=== PATIENT | female | born 1995 | race Caucasian/White ===

== ENCOUNTER 2017-01-20 17:15 | Outpatient (CLI) | payer OTHER ==
[~2017-01-20 17:15] MED LIST: BENADRYL25 MG PO; EPIPEN ADU0.3 MG/0.3 IM; MIRALAX17 GM PO; NORCO 5/3251 TABLET PO; ONDANSETRON4 MG/2 ML PO; PREDNISONE20 MG PO; PRENATAL TABLE1 EAC3 PO; ZANTAC150 MG PO; ZOFRAN ODT4 MG PO; [UNRECOGNIZED DRUG - REMARK]
[2017-01-20 17:47] VITALS: BP 108/60
[2017-01-20 19:13] VITALS: BP 115/59
[2017-01-20 20:37] VITALS: BP 116/59
[2017-01-20 21:35] LABS: CANDIDA DNA PROBE NEGATIVE; GARDNERELLA DNA PROBE NEGATIVE; INTERNAL CONTROL VALID? YES
[2017-01-22 13:11] LABS: CHLAMYDIA TRACHOMATIS NEGATIVE; NEISSERIA GONORRHOEAE NEGATIVE
== END 2017-01-20 21:39 | disposition home or self-care (01) ==
LOC: LDRP-OP 17:15 → 2WEST 17:17 → LDRP-OP 04-03 16:47
PROVIDERS: Advanced Practice Midwife
DX: O60.03 Preterm labor without delivery, third trimester (principal); Z3A.29 29 weeks gestation of pregnancy
CPT/HCPCS: 59025; 82731; 87081; 87086; 87480; 87491; 87510; 87591; 87660; G0378; J7120

== ENCOUNTER 2017-03-28 07:02 | Inpatient (IN) | payer OTHER ==
[2017-03-28] VITALS (22 sets, daily range): BP systolic 99–131; BP diastolic 55–79
[~2017-03-28] VITALS: Ht 167.6 cm; Wt 90.2 kg
[2017-03-28 08:25] LABS: EOSINOPHIL (%) 0.5 % (0-5); EOSINOPHIL COUNT 0.1 K/uL (0-0.3); HEMATOCRIT 34.3 % (36.0-46.0); IMMATURE GRANULOCYTE (%) 0.5 % (0.0-0.7); IMMATURE GRANULOCYTE COUNT 0.1 K/uL; INSTRUMENT ABS NEUTROPHIL CT 8.7 K/uL; LYMPHOCYTE COUNT 1.6 K/uL (1.0-2.8); MCH 28.5 PG (29.0-34.0); MCHC 32.7 G/DL (30.0-36.0); MCV 87.3 FL (83-99); MEAN PLAT.VOLUME 11.4 uM^3 (9.5-12.4); MONOCYTE (%) 7.6 % (3-12); MONOCYTE COUNT 0.9 K/uL (0-0.8); NEUTROPHIL (%) 76.8 % (45-76); NEUTROPHIL COUNT 8.7 K/uL (1.8-6.4); PLATELET COUNT 218 K/uL (156-360); RBC DIS.WIDTH-CV 14.1 % (11.8-14.6); RBC DIS.WIDTH-SD 45.4 % (39-53); RED BLOOD COUNT 3.93 M/uL (3.80-5.20); WHITE BLOOD COUNT 11.4 K/uL (4.1-10.2)
[2017-03-28 08:27] LABS: ADD MIUA? YES; BILIRUBIN NEGATIVE; BLOOD NEGATIVE; COLOR YELLOW ((YELLOW)); GLUCOSE (STRIP) NEGATIVE; KETONES NEGATIVE; LEUKOCYTES TRACE; NITRITE NEGATIVE; PROTEIN (STRIP) NEGATIVE; SPECIFIC GRAVITY 1.015 (1.000-1.030); UROBILINOGEN 0.2 MG/DL (0.2-1.0)
[2017-03-28 08:35] LABS: BACTERIA 1+ /HPF; EPITHELIAL CELLS 2+ /HPF; MUCUS TRACE /LPF; RED BLOOD CELLS 0-5 /HPF (0-5); UCUL ADDED? NO; WHITE BLOOD CELLS 0-5 /HPF (0-5)
[2017-03-28 08:37] LABS: AMPHETAMINE NEGATIVE (500 ng/mL); BARBITURATES NEGATIVE (200 ng/mL); BENZODIAZEPINES NEGATIVE (150 ng/mL); COCAINE NEGATIVE (150 ng/mL); INTERNAL CONTROLS VALID? YES; METHADONE NEGATIVE (200 ng/mL); METHAMPHETAMINE NEGATIVE (500 ng/mL); OPIATES (MORPHINE) NEGATIVE (100 ng/mL); OXYCODONE NEGATIVE (100 ng/mL); PHENCYCLIDINE NEGATIVE (25 ng/mL); PROPOXYPHENE NEGATIVE (300 ng/mL); THC CANNABINOIDS NEGATIVE (50 ng/mL); TRICYCLIC ANTIDEPRESSANTS NEGATIVE (300 ng/mL)
[2017-03-28 08:58] LABS: AMYLASE 40 IU/L (1-118); ANION GAP 9 MEQ/L (2-14); CHLORIDE 106 MEQ/L (99-109); POTASSIUM 4.5 MEQ/L (3.7-5.4); SAMPLE HEMOLYSIS CHECK 0; SAMPLE ICTERIC CHECK 0; SAMPLE LIPEMIA CHECK 0; SODIUM 137 MEQ/L (136-147); TOTAL BILIRUBIN 0.4 MG/DL (0.0-1.0)
[2017-03-28 09:04] LABS: ALKALINE PHOSPHATASE 129 IU/L (3-129); GFR ESTIMATE (CALCULATED) > 59 mL/min/; GLUCOSE 76 mg/dL (70-99); LIPASE 19 U/L (1.0-51.0); UREA NITROGEN (BUN) 8 mg/dL (9-23)
[2017-03-29 07:16] VITALS: BP 117/66
[2017-03-29 07:46] LABS: EOSINOPHIL (%) 0.4 % (0-5); EOSINOPHIL COUNT 0.1 K/uL (0-0.3); HEMATOCRIT 33.4 % (36.0-46.0); IMMATURE GRANULOCYTE (%) 0.5 % (0.0-0.7); IMMATURE GRANULOCYTE COUNT 0.1 K/uL; INSTRUMENT ABS NEUTROPHIL CT 9.2 K/uL; LYMPHOCYTE COUNT 1.6 K/uL (1.0-2.8); MCH 27.4 PG (29.0-34.0); MCHC 31.4 G/DL (30.0-36.0); MCV 87.2 FL (83-99); MEAN PLAT.VOLUME 11.3 uM^3 (9.5-12.4); MONOCYTE (%) 8.9 % (3-12); MONOCYTE COUNT 1.1 K/uL (0-0.8); NEUTROPHIL (%) 77.1 % (45-76); NEUTROPHIL COUNT 9.2 K/uL (1.8-6.4); PLATELET COUNT 200 K/uL (156-360); RBC DIS.WIDTH-CV 14.2 % (11.8-14.6); RBC DIS.WIDTH-SD 45.1 % (39-53); RED BLOOD COUNT 3.83 M/uL (3.80-5.20)
[2017-03-29] MEDS ORDERED: IBUPROFEN800 MG PO (10:34)
[2017-03-29 16:12] VITALS: BP 128/67
== END 2017-03-29 18:27 | disposition home or self-care (01) | DRG 775 ==
LOC: LDRP-OP → 2WEST 07:03 → LDRP-OP 04-03 22:07
PROVIDERS: Advanced Practice Midwife
PROC: 10E0XZZ Delivery of Products of Conception, External Approach (ICD-10-PCS; principal; 2017-03-28)
PROC: 00HU33Z Insertion of Infusion Device into Spinal Canal, Percutaneous Approach (ICD-10-PCS; principal; 2017-03-28)
PROC: 10907ZC Drainage of Amniotic Fluid, Therapeutic from Products of Conception, Via Natural or Artificial Opening (ICD-10-PCS; principal; 2017-03-28)
PROC: 3E0S3CZ (ICD-10-PCS; principal; 2017-03-28)
PROC: 0HQ9XZZ Repair Perineum Skin, External Approach (ICD-10-PCS; principal; 2017-03-28)
DX: O99.62 Diseases of the digestive system complicating childbirth (principal); E66.3 Overweight; K92.89 Other specified diseases of the digestive system; O71.82 Other specified trauma to perineum and vulva; Z37.0 Single live birth; K59.09 Other constipation; Z3A.39 39 weeks gestation of pregnancy; Z68.27 Body mass index [BMI] 27.0-27.9, adult
CPT/HCPCS: 80053; 81003; 82150; 83690; 85025; C1755; J2405; J3010; J7120

== ENCOUNTER 2018-03-20 13:37 | Emergency (ER) | payer OTHER ==
[~2018-03-20] VITALS: Ht 167.6 cm; Wt 73.0 kg
[~2018-03-20 13:37] MED LIST changes: +IBUPROFEN800 MG PO
[2018-03-20 15:16] LABS: HEMATOCRIT 40.8 % (36.0-46.0); HEMOGLOBIN 13.9 G/DL (11.9-15.5); MCH 31.1 PG (29.0-34.0); MCHC 34.1 G/DL (30.0-36.0); MCV 91.3 FL (83-99); PLATELET COUNT 252 K/uL (156-360); RBC DIS.WIDTH-CV 12.3 % (11.8-14.6); RBC DIS.WIDTH-SD 40.8 % (39-53); RED BLOOD COUNT 4.47 M/uL (3.80-5.20)
[2018-03-20 15:25] LABS: CHLORIDE 106 mEq/L (99-109); POTASSIUM 3.9 mEq/L (3.7-5.4); SODIUM 140 mEq/L (136-147)
[2018-03-20 15:27] LABS: GLUCOSE 92 mg/dL (70-99)
[2018-03-20 15:31] LABS: GFR ESTIMATE (CALCULATED) > 59 mL/min/
[2018-03-20 15:32] LABS: UREA NITROGEN (BUN) 15 mg/dL (9-23)
[2018-03-20 15:38] LABS: TROP-I INTERPRETATION NEGATIVE; TROPONIN-I < 0.01 ng/mL (0.0-0.30)
[2018-03-20 15:43] LABS: QUANTITATIVE HCG < 4.0 MIU/ML
[2018-03-20 17:36] VITALS: BP 116/92
== END 2018-03-20 17:37 | disposition home or self-care (01) ==
LOC: EME 13:37
PROVIDERS: Nurse Practitioner Family
DX: R07.89 Other chest pain (principal); R06.02 Shortness of breath; R55 Syncope and collapse; Z86.718 Personal history of other venous thrombosis and embolism; Z95.9 Presence of cardiac and vascular implant and graft, unspecified; Z90.49 Acquired absence of other specified parts of digestive tract; Z88.0 Allergy status to penicillin
CPT/HCPCS: 71046; 71275; 80048; 84484; 84702; 85027; 93005; 99281; 99284; J1885; J7030